=== PATIENT | male | born 1980 | race Caucasian/White ===

== ENCOUNTER 2019-05-01 13:44 | Emergency (ER) | payer SELFPAY ==
[~2019-05-01] VITALS: Ht 177.8 cm; Wt 77.2 kg
--- NOTE | 2019-05-01 14:48 | PHYS DOC ---
Adult General Chief Complaint Chief Complaint: ABDOMINAL PAIN HPI HPI Patient is a 39 year old male patient complains of abdominal pain. Patient states for the last 3 days, he has felt some chills, malaise. States he has had decreased appetite. States today, he started to have some sharp pains in his lower left abdomen. States he has not had this in the past. States he has not taken anything for it other than some digestive medication. States his last bowel movement was 3 days ago. Denies any diarrhea prior to this. States no prior abdominal surgeries. Review of Systems Review of Systems Constitutional: Denies fever does report chills for the last 3 days [] HENT: Denies nasal congestion or sore throat [] Respiratory: Denies cough or shortness of breath [] Cardiovascular: No additional information not addressed in HPI [] GI: Reports abdominal pain, nausea. Denies vomiting. Denies bloody stools or diarrhea. Does report constipation, no bowel movement for the last 3 days. : Denies dysuria or hematuria [] Musculoskeletal: Denies back pain or joint pain [] Integument: Denies rash or skin lesions [] Neurologic: Denies headache, focal weakness or sensory changes [] Endocrine: Denies polyuria or polydipsia [] All other systems were reviewed and found to be within normal limits, except as documented in this note. Current Medications Current Medications Current Medications Medications (Trade) Dose Ordered Sig/Gina Start Time Stop Time Status Last Admin Dose Admin Ketorolac Tromethamine (Toradol 15mg Vial) 15 mg 1X ONCE 05/01/19 14:45 05/01/19 15:12 DC 05/01/19 15:20 15 MG Ondansetron HCl (Zofran) 4 mg 1X ONCE 05/01/19 14:45 05/01/19 15:12 DC 05/01/19 15:20 4 MG Sodium Chloride 1,000 ml @ 1,000 mls/hr 1X ONCE 05/01/19 14:45 05/01/19 15:44 DC 05/01/19 15:19 1,000 MLS/HR Allergies Allergies Allergies Coded Allergies Type Severity Reaction Last Updated Verified No Known Drug Allergies 05/01/19 No Physical Exam Physical Exam Constitutional: Well developed, well nourished, no acute distress, non-toxic appearance. [] HENT: Normocephalic, atraumatic, oropharynx moist, no oral exudates, nose normal. [] Eyes: PERRLA, EOMI, conjunctiva normal, no discharge. [] Neck: Normal range of motion, no tenderness, supple, no stridor. [] Cardiovascular:Heart rate regular rhythm, no murmur [] Lungs & Thorax: Bilateral breath sounds clear to auscultation [] Abdomen: Bowel sounds diminished overall, soft, tenderness to left lower quadrant with palpation, no masses, no pulsatile masses. [] Skin: Warm, dry, no erythema, no rash. [] Back: No tenderness, no CVA tenderness. [] Extremities: No tenderness, no cyanosis, no clubbing, ROM intact, no edema. [] Neurologic: Alert and oriented X 3, normal motor function, normal sensory function, no focal deficits noted. [] Psychologic: Affect normal, judgement normal, mood normal. [] Current Patient Data Vital Signs Vital Signs Date Time Temp Pulse Resp B/P (MAP) Pulse Ox O2 Delivery O2 Flow Rate FiO2 05/01/19 14:10 97.6 97 16 135/84 (101) 100 Room Air 97.6 Lab Values Laboratory Tests Test 05/01/19 13:44 05/01/19 14:30 05/01/19 15:55 Lactic Acid Level 1.0 mmol/L (0.4-2.0) White Blood Count 10.3 x10^3/uL (4.0-11.0) Red Blood Count 5.74 x10^6/uL (4.30-5.70) H Hemoglobin 17.1 g/dL (13.0-17.5) Hematocrit 48.9 % (39.0-53.0) Mean Corpuscular Volume 85 fL (79-100) Mean Corpuscular Hemoglobin 30 pg (25-35) Mean Corpuscular Hemoglobin Concent 35 g/dL (31-37) Red Cell Distribution Width 13.9 % (11.5-14.5) Platelet Count 312 x10^3/uL (140-400) Neutrophils (%) (Auto) 66 % (31-73) Lymphocytes (%) (Auto) 25 % (24-48) Monocytes (%) (Auto) 6 % (0-9) Eosinophils (%) (Auto) 2 % (0-3) Basophils (%) (Auto) 1 % (0-3) Neutrophils # (Auto) 6.8 x10^3/uL (1.8-7.7) Lymphocytes # (Auto) 2.6 x10^3/uL (1.0-4.8) Monocytes # (Auto) 0.6 x10^3/uL (0.0-1.1) Eosinophils # (Auto) 0.2 x10^3/uL (0.0-0.7) Basophils # (Auto) 0.1 x10^3/uL (0.0-0.2) Sodium Level 139 mmol/L (136-145) Potassium Level 3.7 mmol/L (3.5-5.1) Chloride Level 105 mmol/L (98-107) Carbon Dioxide Level 28 mmol/L (21-32) Anion Gap 6 (6-14) Blood Urea Nitrogen 17 mg/dL (8-26) Creatinine 0.8 mg/dL (0.7-1.3) Estimated GFR (Cockcroft-Gault) 106.5 BUN/Creatinine Ratio 21 (6-20) H Glucose Level 98 mg/dL (70-99) Calcium Level 8.5 mg/dL (8.5-10.1) Total Bilirubin 0.2 mg/dL (0.2-1.0) Aspartate Amino Transferase (AST) 23 U/L (15-37) Alanine Aminotransferase (ALT) 46 U/L (16-63) Alkaline Phosphatase 75 U/L (46-116) Troponin I Quantitative < 0.017 ng/mL (0.000-0.055) Total Protein 5.8 g/dL (6.4-8.2) L Albumin 2.9 g/dL (3.4-5.0) L Albumin/Globulin Ratio 1.0 (1.0-1.7) Lipase 203 U/L (73-393) Laboratory Tests 05/01/19 14:30 Laboratory Tests 05/01/19 15:55 EKG EKG [] Radiology/Procedures Radiology/Procedures []COMPARISON STUDY: None FINDINGS: The bowel gas pattern is nonobstructive. No gross pneumoperitoneum is noted. No pathologic calcifications are seen. No acute osseous changes are identified. IMPRESSION: No radiographic evidence of acute intra-abdominal abnormality Electronically signed by: Jacek Patterson MD (05/01/2019 3:10 PM) [id number] Course & Med Decision Making Course & Med Decision Making Pertinent Labs and Imaging studies reviewed. (See chart for details) Discussed results with patient, patient reports he feels much better at this time, states his pain is only 1 out of 10. States he feels good up to go home. Discussed increasing fiber in diet. Consideration for use of stool softeners. Patient agreed with plan without further questions.patient to follow-up with primary care as needed.] Keira Disclaimer Dragon Disclaimer This electronic medical record was generated, in whole or in part, using a voice recognition dictation system. Departure Departure Impression: Primary Impression: Abdominal pain Disposition: HOME, SELF-CARE Condition: STABLE Referrals: UNKNOWN PCP NAME (PCP) Patient Instructions: Abdominal Pain (Nonspecific) Additional Instructions: As we discussed, increase your food and fluid intake. You may consider some stool softeners to try to clear your bowels, this is likely the cause of your discomfort. He may take Tylenol or ibuprofen for discomfort, follow-up with your primary care provider as needed Problem Qualifiers Primary Impression: Abdominal pain Abdominal location: left lower quadrant Qualified Codes: R10.32 - Left lower quadrant pain ZAIRE ENGLISH APRN May 01, 2019 14:48
[2019-05-01 15:03] LABS: BASO # 0.1 x10^3/uL (0.0-0.2); BASO % 1 % (0-3); EOS # 0.2 x10^3/uL (0.0-0.7); EOS % 2 % (0-3); HEMATOCRIT 48.9 % (39.0-53.0); HEMOGLOBIN 17.1 g/dL (13.0-17.5); LYMPH # 2.6 x10^3/uL (1.0-4.8); LYMPH % 25 % (24-48); MEAN CORPUSCULAR HEMOGLOBIN 30 pg (25-35); MEAN CORPUSCULAR HGB CONC 35 g/dL (31-37); MEAN CORPUSCULAR VOLUME 85 fL (79-100); MONO # 0.6 x10^3/uL (0.0-1.1); MONO % 6 % (0-9); NEUT # 6.8 x10^3/uL (1.8-7.7); NEUT % 66 % (31-73); PLATELET COUNT 312 x10^3/uL (140-400); RED BLOOD COUNT 5.74 x10^6/uL (4.30-5.70); RED CELL DISTRIBUTION WIDTH 13.9 % (11.5-14.5); WHITE BLOOD COUNT 10.3 x10^3/uL (4.0-11.0)
--- NOTE | 2019-05-01 15:13 | RAD ---
2 views of the abdomen 05/01/2019 INDICATION: Abdominal pain, left-sided COMPARISON STUDY: None FINDINGS: The bowel gas pattern is nonobstructive. No gross pneumoperitoneum is noted. No pathologic calcifications are seen. No acute osseous changes are identified. IMPRESSION: No radiographic evidence of acute intra-abdominal abnormality Electronically signed by: Jacek Patterson MD (05/01/2019 3:10 PM) [id number]
[2019-05-01] MEDS: IV NORMAL SALINE 1000ML BAG 1,000 ML IV ONE (15:19)
[2019-05-01] MEDS: ONDANSETRON PF 4 MG/2 ML VIAL. IV ONE (15:20)
[2019-05-01] MEDS: KETOROLAC 15 MG/ML VIAL. IVP ONE (15:20)
[2019-05-01 16:20] LABS: CALCIUM 8.5 mg/dL (8.5-10.1); CREATININE 0.8 mg/dL (0.7-1.3); GFR 106.5; POTASSIUM 3.7 mmol/L (3.5-5.1)
[2019-05-01 16:24] LABS: ALBUMIN 2.9 g/dL (3.4-5.0); TOTAL BILIRUBIN 0.2 mg/dL (0.2-1.0); TOTAL PROTEIN 5.8 g/dL (6.4-8.2)
[2019-05-01 16:29] LABS: BILIRUBIN,URINE NEGATIVE (NEG); CLARITY,URINE TURBID; COLOR,URINE YELLOW; NITRITE,URINE NEGATIVE (NEG); PROTEIN,URINE NEGATIVE (NEG-TRACE)
[2019-05-01 16:40] LABS: AMORPHOUS SEDIMENT,UR PRESENT /HPF; BACTERIA,URINE 0 /HPF (0-FEW); RBC,URINE 0 /HPF (0-2); WBC,URINE 0 /HPF (0-4)
[2019-05-01 17:01] VITALS: BP 134/83
== END 2019-05-01 17:15 | disposition home or self-care (01) ==
LOC: ER 13:44
DX: R10.32 Left lower quadrant pain (principal); R68.83 Chills (without fever); R63.0 Anorexia; R53.81 Other malaise
CPT/HCPCS: 36415; 74018; 80053; 81001; 83605; 83690; 84484; 85025; 96374; 96375; 99285; J1885; J2405; J7030